=== PATIENT | female | born 1960 | race Caucasian/White ===

== ENCOUNTER → 2017-02-14 11:04 | Outpatient (CLI) | payer MEDICARE ==
[2014-06-16 09:13] VITALS: BMI 35.0
[~2017-02-14 11:04] MED LIST: BAYER CHEWABLE81 MG PO; BUMEX2 MG PO; CARDIZEM120 MG PO; CRESTOR40 MG PO; PROAIR HFA8.5 GM INH
== END | disposition home or self-care (01) ==
LOC: D.US 02-13 10:00
DX: M79.605 Pain in left leg (principal); M79.604 Pain in right leg

== ENCOUNTER 2017-03-03 07:26 | Outpatient (CLI) | payer MEDICARE ==
--- NOTE | ~2017-03-03 | HEMODYNAMI ---
PATIENT:LILIANA ESPINAL MEDICAL RECORD: [id number] : 62 LOCATION:[facility] ADMISSION DATE: 03/03/17 Generatedon:03/03/20179:55 Patient name: LILIANA ESPINAL Patient #: [id number] SSN: DO B: 1960 Date of study: 03/03/2017 Page: Of Hemodynamic Procedure Report Patient Data Patient Demographics Procedure consent was obtained First Name: LILIANA Gender: Female Last Name: KYLIE : 1960 Middle Initial: KEATON Age: 56 year(s) Patient #: [id number] Race: Unknown Additional ID: [id number] Contact details Address: [place] [address] State: [place] City: [place] Zip code: [address] Past Medical History Allergies Allergen Reaction Date Comments Reported Eggs 06/16/2014 Other allergy 06/16/2014 Flu vaccine Penicillins 06/16/2014 Penicillins 03/03/2017 Admission Admission Data Admission Date: 03/03/2017 Admission Time: 7:26 Lab Results Lab Result Date: 03/03/2017 Lab Result Time: 0:00 Biochemistry Name Units Result Min Max Creatinine mg/dl 0.9 --(-*--)-- 0.6 1.3 CBC Name Units Result Min Max Hemoglobin g/dl 15.1 --(-*--)-- 13.5 17.5 Procedure Procedure Types Cath Procedure Diagnostic Procedure C [facility] w/Coronaries FFR/IVUS Intra-Coronary IVUS Initial PCI Procedure Coronary Stent Initial Miscellaneous Procedures Moderate Sedation up to 30 minutes Procedure Description Procedure Date Procedure Date: 03/03/2017 Procedure Start Time: 9:38 Procedure End Time: 9:54 Procedure Staff Name Function Kong Barba MD Performing Physician Itz Mccabe RN Nurse Rajan Banuelos RT Scrub Ondina Munira RT Monitor Procedure Data Cath Procedure Fluoroscopy Diagnostic fluoroscopy Total fluoroscopy Time: 4.6 time: 4.6 min min Diagnostic fluoroscopy Total fluoroscopy dose: 782 dose: 782 mGy mGy Contrast Material Contrast Material Type Amount (ml) Isovue 300 87 Entry Location Entry Primary Successful Side Size Upsize Upsize Entry Closure Silva ccessful Closure Location (Fr) 1 (Fr) 2 (Fr) Remarks Device Remarks Radial Right 6 Fr Mechanical artery Short Compression Estimated blood loss: 10 ml Diagnostic catheters Device Type Used For End Catheter Placement Diagnostic Terumo 5Fr LV Angiography Brea 110cm catheter Diagnostic Terumo 5Fr Left Coronary Brea 110cm catheter Angiography Diagnostic Terumo 5Fr Right Coronary Brea 110cm catheter Angiography Procedure Complications No complications Procedure Medications Medication Administration Route Dosage Oxygen NC 2 l/min Heparin Flush Bag added to field 2 bags (1000units/500ml NS) 0.9% NaCl I.V. 100 ml/hr Radial Cocktail added to field 1 syringe (Verapomil 2mg/Nitro 400mcg/Heparin 1500units) Fentanyl I.V. 50 mcg Versed I.V. 1 mg Fentanyl I.V. 50 mcg Versed I.V. 1 mg Radial Cocktail I.A. 1 syringe (Verapomil 2mg/Nitro 400mcg/Heparin 1500units) Heparin Bolus I.V. 4000 units Hemodynamics Rest HGB: 15.1 (g/dl) Heart Rate: 65 (bpm) Snapshots Pre Cath Intra NCS Post Cath Vital Signs Time Heart Resp SPO2 NIBP (mmHg) Rhythm Pain Sedation Rate (ipm) (%) Status Level (bpm) 9:01:02 65 19 98 144/85(121) NSR 0 (11) 10(A) , No pain 9:05:18 66 15 98 137/83(114) NSR 0 (11) 10(A) , No pain 9:09:34 66 15 99 142/76(110) NSR 0 (11) 10(A) , No pain 9:13:46 68 17 98 129/77(110) NSR 0 (11) 10(A) , No pain 9:17:58 67 16 99 124/78(100) NSR 0 (11) 10(A) , No pain 9:22:08 68 17 99 120/76(101) NSR 0 (11) 10(A) , No pain 9:26:16 70 18 98 120/79(96) NSR 0 (11) 9(A) , No pain 9:30:28 71 17 98 123/70(105) NSR 0 (11) 9(A) , No pain 9:34:38 71 17 97 121/78(92) NSR 0 (11) 9(A) , No pain 9:38:45 71 17 97 132/79(115) NSR 0 (11) 9(A) , No pain 9:42:53 82 17 94 120/72(98) NSR 0 (11) 9(A) , No pain 9:47:05 77 17 96 113/70(97) NSR 0 (11) 9(A) , No pain 9:51:13 74 18 97 122/73(98) NSR 0 (11) 9(A) , No pain 9:53:36 75 17 98 119/71(106) NSR 0 (11) 9(A) , No pain Medications Time Medication Route Dose Verified Delivered Reason Notes Effectiveness by by 9:00:17 Oxygen NC 2 l/min Kong Mobley Per physician Jameson Mccabe RN 9:00:27 Heparin Flush added 2 bags Kong Mobley used for Bag to Jameson Mccabe RN procedure (1000units/500ml field NS) 9:00:36 0.9% NaCl I.V. 100 Kong Mobley Per physician ml/hr Jameson Mccabe RN 9:00:45 Radial Cocktail added 1 Kong Mobley used for (Verapomil to syringe Jameson Mccabe RN procedure 2mg/Nitro field 400mcg/Heparin 1500units) 9:24:12 Fentanyl I.V. 50 mcg Kong Mobley for sedation Jameson Mccabe RN 9:24:18 Versed I.V. 1 mg Kong Mobley for sedation Jameson Mccabe RN 9:37:09 Fentanyl I.V. 50 mcg Kong Mobley for sedation Jameson Mccabe RN 9:37:14 Versed I.V. 1 mg Kong Mobley for sedation Jameson Mccabe RN 9:39:49 Radial Cocktail I.A. 1 Kong Triana for (Verapomil syringe Jameson Barba MD vasodilation 2mg/Nitro 400mcg/Heparin 1500units) 9:43:55 Heparin Bolus I.V. 4000 Kong Mobley for units Jameson Mccabe RN anticoagulation Procedure Log Time Note 8:36:32 Itz Mccabe RN sent for patient. Start room use. 8:37:31 Time tracking: Regular hours 8:37:36 Plan of Care:Hemodynamics will remain stable., Cardiac rhythm will remain stable., Comfort level will be maintained., Respiratory function will remain adequate., Patient/ family verbilizes understanding of procedure., Procedure tolerated without complication., Recovers from procedure without complications.. 8:51:01 Patient received from Pre/Post Procedure Room to CCL 2 Alert and oriented. Tansferred to table in Supine position. 8:51:03 Warm blankets applied, and carmen hugger turned on for patient comfort. 8:51:03 Correct patient and procedure confirmed by team. 8:51:05 Signed procedure consent form obtained from patient. 8:51:05 ECG and BP/O2 sat monitors applied to patient. 8:51:06 Full Disclosure recording started 8:59:54 Vital chart was started 9:00:17 Oxygen 2 l/min NC was administered by Itz Mccabe RN; Per physician; 9:00:27 Heparin Flush Bag (1000units/500ml NS) 2 bags added to field was administered by Itz Mccabe RN; used for procedure; 9:00:36 0.9% NaCl 100 ml/hr I.V. was administered by Itz Mccabe RN; Per physician; 9:00:45 Radial Cocktail (Verapomil 2mg/Nitro 400mcg/Heparin 1500units) 1 syringe added to field was administered by Itz Mccabe RN; used for procedure; 9:01:13 Baseline sample Acquired. 9:01:16 Rhythm: sinus rhythm 9:01:38 H&P Date Dictated: 02/07/2017 Within 30 days and on chart., H&P Addendum completed by physician on day of procedure. (MUST COMPLETE FOR ALL OUTPATIENTS). 9:01:39 Pre-procedure instructions explained to patient. 9:01:40 Pre-op teaching completed and patient verbalized understanding. 9:01:41 Family in patients room. 9:01:43 Patient NPO since Midnight. 9:01:52 Patient allergic to Penicillins 9:01:55 Is the patient allergic to Iodine/contrast media? No. 9:02:05 Is patient on blood thinner?Yes 9:02:12 ACC The patient was administered the following blood thiners within the last 24 hours: ACCAspirin, ACCPlavix 9:02:15 Patient diabetic? No. 9:02:17 Previous problem with sedation/anesthesia? No ? 9:02:18 Snore? Yes 9:02:19 Sleep apnea? Yes 9:02:20 Deviated septum? No 9:02:20 Opens mouth fully? Yes 9:02:21 Sticks out tongue? Yes 9:02:22 Airway obstruction? No ? 9:02:25 Dentures? Yes In 9:02:29 Pre procedure: right dorsailis pedis pulse 2+ Normal; easily identifiable; not easily obliterated 9:02:30 Modified Titi's test Ulnar < 7 seconds 9:02:32 Patient pain scale 0/10 ?. 9:02:38 IV patent on arrival in left hand with 0.9% NaCl at [facility]. 9:02:42 Lab results completed and on chart. 9:02:46 Right Radial & Right Groin area was prepped with chlora-prep and draped in sterile fashion 9:02:47 Alarms reviewed by R. N. 9:02:51 Sharps counted by scrub and verified by R.N. 9:03:36 Lab Result : Creatinine 0.9 mg/dl 9:03:36 Lab Result : Hemoglobin 15.1 g/dl 9:03:55 Use device set Radial Dx 9:03:56 Acist Syringe opened to sterile field. 9:03:56 Medline Cath Pack opened to sterile field. 9:03:57 Bag Decanter opened to sterile field. 9:03:57 Terumo 6Fr Slender Glidesheath opened to sterile field. 9:03:57 [facility] Michael 260cm J .035 wire opened to sterile field. 9:03:58 Acist Hand Control opened to sterile field. 9:03:58 Acist Manifold opened to sterile field. 9:03:58 Tegaderm 4 x 4 opened to sterile field. 9:03:59 MBrace Wrist Support opened to sterile field. 9:09:01 Patient not . Patient has had hysterectomy. 9:14:32 Zero performed for pressure channel P1 9:23:41 Final Timeout: patient, procedure, and site verified with staff and physician. All members of the team are in agreement. 9:23:49 Right Radial site verified by team. 9:23:52 Physical assessment completed. ASA score P 2 - A patient with mild systemic disease as per Kong Barba MD. 9:23:55 Sedation plan: IV Moderate Sedation Versed, Fentanyl 9:24:12 Fentanyl 50 mcg I.V. was administered by Itz Mccabe RN; for sedation; 9:24:18 Versed 1 mg I.V. was administered by Itz Mccabe RN; for sedation; 9:37:09 Fentanyl 50 mcg I.V. was administered by Itz Mccabe RN; for sedation; 9:37:14 Versed 1 mg I.V. was administered by Itz Mccabe RN; for sedation; 9:37:46 Procedure started. 9:38:25 Local anesthetic to right radial artery with Lidocaine 2% by Kong Barba MD.INITIAL ACCESS ONLY 9:38:40 A 6 Fr Short sheath was inserted into the Right Radial artery 9:39:11 A Diagnostic Terumo 5Fr Brea 110cm catheter was advanced over the wire and used for LV Angiography. 9:39:14 LV gram done using TRIPLETT 9:39:18 Injector settings: Ml/sec: 5, Volume: 15, 9:39:26 EF : 60 % 9:39:49 Radial Cocktail (Verapomil 2mg/Nitro 400mcg/Heparin 1500units) 1 syringe I.A. was administered by Kong Barba MD; for vasodilation; 9:40:56 A Diagnostic Terumo 5Fr Brea 110cm catheter was advanced over the wire and used for Left Coronary Angiography. 9:42:32 A Diagnostic Terumo 5Fr Brea 110cm catheter was advanced over the wire and used for Right Coronary Angiography. 9:43:01 Ludwig Whisper J 300cm 0.014 guide wire opened to sterile field. 9:43:02 Nash [place] Eagleye IVUS Catheter opened to sterile field. 9:43:02 Medtronic Launcher 6Fr AR 2.0 guide catheter opened to sterile field. 9:43:11 6 Fr AR 2.0 guide catheter was inserted over the wire 9:43:21 [employer] BasixCompak Inflation Kit opened to sterile field. 9:43:55 Heparin Bolus 4000 units I.V. was administered by Itz Mccabe RN; for anticoagulation; 9:45:29 Guide Catheter removed. unable to cannulate vessel. 9:45:37 GUIDE Terumo 6Fr Brea 4.0 guide catheter opened to sterile field. 9:45:50 6 Fr Brea 4.0 guide catheter was inserted over the wire 9:46:18 Whisper wire advanced. 9:47:11 IVUS catheter advanced over wire. 9:47:23 IVUS pass to RCA lesion performed. 9:48:43 IVUS catheter removed over wire. 9:50:56 Inflation Number: 1 A Rick RX 3.0 x 38 stent was prepped and advanced across the Mid RCA. The stent was deployed at 13 LYLA for 0:07 (min:sec). 9:51:07 Stent catheter was removed intact over wire. 9:51:08 Wire removed. 9:51:08 Guide catheter removed. 9:51:17 Sheath removed intact; hemostasis achieved with Mechanical Compression to the Right Radial artery. 9:51:20 Procedure ended.(Physican Out) 9:51:38 Fluoroscopy time 04.60 minutes. 9:51:44 Fluoroscopy dose: 782 mGy 9:51:44 Flurop Dose total: 782 9:51:46 Contrast amount:Isovue 300 87ml. 9:51:48 Sharps counted by scrub and verified by R.N. 9:51:50 TR band inflated with 12cc of air. 9:51:51 Insertion/operative site no bleeding no hematoma. 9:52:03 Post right radial artery:stable, clean and dry 9:52:04 Post Procedure Pulses reassessed and unchanged 9:52:07 Post-procedure physical assessment completed. ASA score P 2 - A patient with mild systemic disease as per Kong Barba MD. 9:52:09 Post procedure rhythm: unchanged. 9:52:13 Estimated blood loss: 10 ml 9:52:14 Post procedure instruction explained to patient.Patient verbalizes understanding. 9:52:15 Patient needs reinforcement of post procedure teaching. 9:52:31 Procedure type changed to Cath procedure, Diagnostic procedure, LHC, LHC w/Coronaries, FFR/IVUS, Intra-Coronary IVUS Initial, PCI procedure, Coronary Stent Initial, Miscellaneous Procedures, Moderate Sedation up to 30 minutes 9:52:36 Procedure Complication : No complications 9:52:43 Terumo TR Band Standard opened to sterile field. 9:53:51 See physician's report for complete and final results. 9:53:53 Procedure and supply charges have been captured, reviewed, submitted and are correct. 9:54:34 Vital chart was stopped 9:54:36 Report given to Pre/Post Procedure Room. 9:54:40 Patient transfered to Pre/Post Procedure Room with Stretcher. 9:54:47 Procedure ended. 9:54:47 Full Disclosure recording stopped 9:54:51 End room use (Document Last) Intervention Summary Intervention Notes Time ActionType Lesion and Equipment Action# Pressure Duration Attributes Used 9:50:56 Place stent Mid RCA [place] RX 1 13 00:07 3.0 x 38 stent Device Usage Item Name Manufacture Quantity Catalog Hospital Part Current Minim al Lot# / Number Charge Number Stock Stock Serial# Code Acist Acist 1 61346 558580 345806 996471 20 Syringe Medical [employer] Inc Medline Cardinal 1 [id number] 132210 59927 195084 5 Cath Pack Health Bag Microtek 1 2002S 280549 87893 375408 5 EverTrue Inc. Terumo 6Fr Terumo 1 [id number] 750553 688814 280262 [address] [facility] 1 729383 278008 310209 902405 30 260cm J .035 wire Acist Hand Acist 1 70602 837276 582327 910260 5 Ouner [employer] Inc Acist Acist 1 58662 182390 984855 596985 5 Manifold Medical Systems Inc Tegaderm 4 3M 1 1626W 470040 693044 311295 5 x 4 MBrace Advanced 1 140-0250-00 169474 36530 611931 5 Wrist Vascular Support Dynamics Diagnostic Terumo 1 29-3558 273389 868792 814479 5 Terumo 5Fr Brea 110cm catheter Ludwig Ludwig 1 [id number] 265971 583843 037718 5 Whisper J Vascular 300cm 0.014 guide wire Nash Nash 1 [id number] 530884 970335 801774 8 [place] Eagley[place] IVUS Catheter Medtronic Medtronic 1 [id number] 393717 09535 488829 1 Launcher 6Fr AR 2.0 guide catheter Merit Merit 1 [id number] 000824 395983 444118 15 Expa Medical Inflation Kit GUIDE Terumo 1 53-3449 904409 591168 320987 1 Terumo 6Fr Brea 4.0 guide catheter [place] RX 3.0 Medtronic 1 [id number] 754202 4112741 396409 5 [id number] x 38 stent Terumo TR Terumo 1 [id number] 102863 350342 437755 40 Band Standard Signature Audit Warba Stage Time Signature Unsigned Intra-Procedure 03/03/2017 Ondina 9:55:01 AM Counts RT(R) Signatures Monitor : Ondina Signature : Counts RT Date : Time : [address] [place] [address]
[2017-03-03] MEDS ORDERED: PLAVIX75 MG PO (07:42)
[2017-03-03] MEDS ORDERED: HYDROCODONE-APA1 TAB PO (07:42)
[2017-03-03 07:50] VITALS: BP 146/77; BMI 33.3
[2017-03-03 08:13] LABS: BASOPHILS 0.2 % (0-2); EOSINOPHILS 0.9 % (0-7); HEMATOCRIT 43.4 % (36.0-48.0); HEMOGLOBIN 15.1 g/dL (12-16); IMMATURE GRANULOCYTES 0.1 % (0-5); MCHC 34.8 g/dL (31.0-37.0); MCV 86.1 fL (80.0-100.0); MEAN PLATELET VOLUME 11.6 fL (7.4-10.4); MONOCYTES 8.4 % (2-11); NEUTROPHILS 54.4 % (40-80); PLATELET COUNT 189 10x3/uL (130-400); RBC 5.04 10x6/uL (4.00-5.40); RDW 12.6 % (11.5-14.5); WBC 8.1 10x3/uL (4.8-10.8)
[2017-03-03 08:22] LABS: ANION GAP 12.6 mmol/L (8-16); CALCIUM 9.5 mg/dL (8.5-10.1); CARBON DIOXIDE 28.9 mmol/L (21.0-32.0); CREATININE - SERUM 0.9 mg/dL (0.6-1.3); POTASSIUM - SERUM 3.5 mmol/L (3.5-5.1)
--- NOTE | 2017-03-03 10:55 | NUR ---
1025 HOB ELEVATED, ROOM AIR W NO DISTRESS. AWAKE AND TALKING WITH AT BEDSIDE. NSR RATE 77 WNO C/O CHEST PAIN. PULSES PALP X 4. R WRIST TR BAND C/D/I W NO HEMATOMA OR BLEEDING.
--- NOTE | 2017-03-03 11:00 | NUR ---
SITTING UP IN BED EATING TURKEY SANDWICH W NO C/O NAUSEA. R WRIST REMAINS C/D/I W NO HEMATOMA OR BLEEDING.
--- NOTE | 2017-03-03 11:30 | NUR ---
1130 VSS WITH CHEST PAIN DENIED TR BAND TO R/WRIST CDI NO BLEEDING NO HEMATOMA NOTED. FAMILY AT SIDE
--- NOTE | 2017-03-03 12:00 | NUR ---
1200 NO COMPLAINTS NO DISTRESS VSS WITH TR BAND TO R/WRIST CDI NO CHANGE FROM PREVIOUS ASSESSMENT
--- NOTE | 2017-03-03 12:29 | NUR ---
RESTING QUIETLY WITH EYES CLOSED NO DISTRESS NOTED
--- NOTE | 2017-03-03 13:09 | OP ---
PATIENT NAME: LILIANA ESPINAL MEDICAL RECORD: [id number] :62 LOCATION:D.CAT ADMISSION DATE: SURGEON: CORNELIUS ZULUAGA MD DATE OF OPERATION: 03/03/2017 DATE OF SERVICE: 03/03/2017 PROCEDURES: 1. PTCA stent RCA. 2. Intravascular ultrasound. 3. Left heart catheterization. 4. Selective coronary angiography. 5. Left ventriculogram. INDICATION: Angina and coronary artery disease. PROCEDURE IN DETAIL: After informed consent was obtained and after a detailed explanation of the risks, benefits as well as alternative therapies, the patient elected to proceed with angiogram and angioplasty. The right radial area was prepped and draped in normal sterile fashion. The right radial artery was cannulated via modified Seldinger technique with placement of 6-Kyrgyz sheath. All catheters exchanged through this sheath. FINDINGS: The left ventriculogram was performed in standard 30-degree TRIPLETT view, reveals good cardiac wall motion throughout all segments. Overall ejection fraction estimated at 60%. SELECTIVE CORONARY ANGIOGRAPHY: 1. Left main showed no significant angiographic disease. 2. Left anterior descending has moderate irregularities, but no flow-limiting stenosis. 3. The left circumflex shows moderate irregularities, but no flow-limiting stenosis. 4. Right coronary has a long area of greater than 70% stenosis confirmed by intravascular ultrasound. PTCA STENT OF THE RIGHT CORONARY: Stent used is a 3.0 x 38 mm Resolute. Result was 0% residual stenosis. OVERALL IMPRESSION: Successful percutaneous transluminal coronary angioplasty stent of the right coronary artery going from 80% initial stenosis to 0% residual. TRANSINT:[id number] Voice Confirmation ID: [id number] DOCUMENT ID: [id number] CORNELIUS ZULUAGA MD at 1309 CC: [id number] DICTATION DATE: 03/03/17 0955 ASSISTANT COACH: 03/03/17 [address] [place] [address]
--- NOTE | 2017-03-03 13:25 | NUR ---
2CC AIR REMOVED FROM R WRIST TR BAND. WILL MONITOR FOR BLEEDING.
--- NOTE | 2017-03-03 13:47 | NUR ---
PIV REMOVED FROM LEFT WRIST WITH BANDAID APPLIED. UP TO BEDSIDE TO DRESS.
--- NOTE | 2017-03-03 14:10 | NUR ---
TR BAND WEANED, TEGADERM AND 2X2 APPLIED TO WRIST. BRACE RE-APPLIED. D/C INSTRUCTIONS DISCUSSED WITH PATIENT AND AT SIDE. WHEELED OUT VIA WHEELCHAIR.
== END 2017-03-03 14:11 | disposition home or self-care (01) ==
LOC: D.CATH 07:26
PROVIDERS: Internal Medicine Interventional Cardiology
DX: I25.119 Atherosclerotic heart disease of native coronary artery with unspecified angina pectoris (principal); R94.30 Abnormal result of cardiovascular function study, unspecified; I70.219 Atherosclerosis of native arteries of extremities with intermittent claudication, unspecified extremity; R06.09 Other forms of dyspnea; Z01.812 Encounter for preprocedural laboratory examination
CPT/HCPCS: 93458; 92978; C9600

== ENCOUNTER → 2017-06-09 09:07 | Outpatient (CLI) | payer MEDICARE ==
[~2017-06-09 09:07] MED LIST changes: +HYDROCODONE-APA1 TAB PO; +PLAVIX75 MG PO
== END | disposition home or self-care (01) ==
LOC: D.MRI 09:00
DX: M62.81 Muscle weakness (generalized) (principal)

== ENCOUNTER → 2017-12-15 16:11 | Outpatient (CLI) | payer MEDICARE | END | disposition home or self-care (01) | LOC: D.MRI 16:11 | DX: M54.31 Sciatica, right side (principal) ==

== ENCOUNTER 2018-03-12 18:12 | Emergency (ER) | payer MEDICARE ==
[~2018-03-12] VITALS: Ht 165.1 cm; Wt 90.9 kg
[2018-03-12 18:26] VITALS: Ht 165.1 cm; Wt 90.9 kg
[2018-03-12] MEDS ORDERED: HYDROXYZINE HCL50 MG PO (19:06)
[2018-03-12] MEDS ORDERED: MEDROL DOSE PACK4 MG PO (19:06)
[2018-03-12 19:48] VITALS: BP 132/84
== END 2018-03-12 19:48 | disposition home or self-care (01) ==
LOC: D.ER 18:12
DX: T65.891A Toxic effect of other specified substances, accidental (unintentional), initial encounter (principal); L24.1 Irritant contact dermatitis due to oils and greases; Y92.89 Other specified places as the place of occurrence of the external cause; I10 Essential (primary) hypertension; Z85.038 Personal history of other malignant neoplasm of large intestine; Z85.048 Personal history of other malignant neoplasm of rectum, rectosigmoid junction, and anus

== ENCOUNTER → 2018-06-06 08:55 | Outpatient (CLI) | payer MEDICARE ==
[2018-03-12 18:26] VITALS: BMI 33.3
[~2018-06-06 08:55] MED LIST changes: +HYDROXYZINE HCL50 MG PO; +MEDROL DOSE PACK4 MG PO
== END | disposition home or self-care (01) ==
LOC: D.MRI 08:55
DX: G35 Multiple sclerosis (principal)

== ENCOUNTER 2018-06-25 15:59 | Observation (INO) | payer MEDICARE ==
[~2018-06-25] VITALS: Ht 165.1 cm; Wt 90.9 kg
--- NOTE | ~2018-06-25 | HEMODYNAMI ---
PATIENT:LILIANA ESPINAL MEDICAL RECORD: [id number] : 62 [facility] GabbyE13- [facility]# [id number] ADMISSION DATE: 06/25/18 Generatedon:06/26/201815:31 Patient name: LILIANA ESPINAL Patient #: [id number] SSN: DO B: 1960 Date of study: 06/26/2018 Page: Of Hemodynamic Procedure Report Patient Data Patient Demographics Procedure consent was obtained First Name: LILIANA Gender: Female Last Name: KYLIE : 1960 [facility] Initial: KEATON Age: 57 year(s) Patient #: [id number] Race: Unknown Additional ID: [id number] Contact details Address: [place] [address] State: [place] City: [place] Zip code: [address] Past Medical History Allergies Allergen Reaction Date Comments Reported Eggs 06/16/2014 Other allergy 06/16/2014 Flu vaccine Penicillins 06/16/2014 Penicillins 03/03/2017 Admission Admission Data Admission Date: 06/25/2018 Admission Time: 18:22 Room #: D.E13 Procedure Procedure Types Cath Procedure Diagnostic Procedure [facility] w/Coronaries Sedation Charges Moderate Sedation up to 15 minutes PCI Procedure Coronary Stent Coronary Stent Initial Procedure Description Procedure Date Procedure Date: 06/26/2018 Procedure Start Time: 15:11 Procedure End Time: 15:27 Procedure Staff Name Function Brendon Omalley MD Performing Physician Katrin Dahl RT Monitor Myrtle Coleman RT Scrub Romeo Oliver RN Nurse Procedure Data Cath Procedure Fluoroscopy Diagnostic fluoroscopy Total fluoroscopy Time: 5.5 time: 5.5 min min Diagnostic fluoroscopy Total fluoroscopy dose: 870 dose: 870 mGy mGy Contrast Material Contrast Material Type Amount (ml) Isovue 300 100 Entry Location Entry Primary Successful Side Size Upsize Upsize Entry Closure Silva ccessful Closure Location (Fr) 1 (Fr) 2 (Fr) Remarks Device Remarks Radial Right 6 Fr Mechanical artery Short Compression Estimated blood loss: 10 ml Diagnostic catheters Device Type Used For End Catheter Placement DIAGNOSTIC Eola 110cm 5 Procedure Fr catheter ([id number]) Procedure Complications No complications Procedure Medications Medication Administration Route Dosage 0.9% NaCl I.V. 100 ml/hr Oxygen etCO2 Nasal cannula 2 l/min Heparin Flush Bag added to field 2 bags (1000units/500ml NS) Lidocaine 2% added to field 20 Radial Cocktail added to field 1 syringe (Verapomil 2mg/Nitro 400mcg/Heparin 1500units) Benadryl I.V. 50 mg Versed I.V. 1 mg Fentanyl I.V. 50 mcg Radial Cocktail I.A. 1 syringe (Verapomil 2mg/Nitro 400mcg/Heparin 1500units) Heparin Bolus I.V. 5000 units Plavix P.O. 75 mg Hemodynamics Rest Heart Rate: 66 (bpm) Pressure Samples Time Site Value (mmHg) Purpose Heart Use Rate(bpm) 15:12 LV 122/5,5 EDP 83 Gradients Valve Time Site Site Mean SEP/DFP Peak To Heart Use 1 2 (mmHg) (sec/min) Peak Rate (mmHg) (bpm) Aortic 15:13 LV AO 78 Snapshots Pre Cath Intra NCS Post Cath Vital Signs Time Heart Resp SPO2 etCO2 NIBP (mmHg) Rhythm Pain Sedation Rate (ipm) (%) (mmHg) Status Level (bpm) 15:01:58 62 18 96 0 151/81(129) NSR 0 (11) 10(A) , No pain 15:06:17 64 21 99 49 152/80(132) NSR 0 (11) 10(A) , No pain 15:10:35 81 11 93 52.9 144/77(110) NSR 0 (11) 9(A) , No pain 15:14:45 80 15 92 51.3 139/80(104) NSR 0 (11) 9(A) , No pain 15:18:59 75 14 96 49 127/80(98) NSR 0 (11) 10(A) , No pain 15:23:08 72 14 97 49.8 132/74(112) NSR 0 (11) 10(A) , No pain 15:27:21 66 14 99 47.5 129/76(113) NSR 0 (11) 10(A) , No pain Medications Time Medication Route Dose Verified Delivered Reason Not es Effectiveness by by 15:05:49 0.9% NaCl I.V. 100 Romeo Romeo Per physician ml/hr Melody Oliver RN RN 15:05:59 Oxygen etCO2 2 l/min Romeo Romeo Per physician Nasal Melody Oliver cannula RN RN 15:06:08 Heparin Flush added 2 bags Romeo Romeo used for Bag to Melody Oliver procedure (1000units/500ml field RN RN NS) 15:06:18 Lidocaine 2% added 20ml Romeo Romeo for local to vial Lorigan Melody anesthetic field RN RN 15:06:27 Radial Cocktail added 1 Romeo Romeo used for (Verapomil to syringe Lorigan Lorfinn procedure 2mg/Nitro field RN RN 400mcg/Heparin 1500units) 15:06:37 Benadryl I.V. 50 mg Romeo Romeo Per physician Melody Oliver RN RN 15:08:27 Versed I.V. 1 mg Romeo Romeo for sedation Melody Oliver RN RN 15:08:35 Fentanyl I.V. 50 mcg Romeo Romeo for sedation Melody Oliver RN RN 15:12:13 Radial Cocktail I.A. 1 Romeo Brendon for (Verapomil syringe Lorigan Shahram vasodilation 2mg/Nitro RN 400mcg/Heparin 1500units) 15:17:25 Heparin Bolus I.V. 5000 Romeo Romeo for units Melody Oliver anticoagulation RN RN 15:26:33 Plavix P.O. 75 mg Romeo Romeo for Melody Oliver antiplatelet RN RN therapy Procedure Log Time Note 14:40:10 Diagnostic Cath Status : Elective 14:40:32 Romeo Oliver RN sent for patient. Start room use. 14:40:33 Time tracking: Regular hours (M-F 7:00 - 5:00) 14:40:37 Plan of Care:Hemodynamics will remain stable., Cardiac rhythm will remain stable., Comfort level will be maintained., Respiratory function will remain adequate., Patient/ family verbilizes understanding of procedure., Procedure tolerated without complication., Recovers from procedure without complications.. 15:00:45 Patient received from ED to CCL 2 Alert and oriented. Tansferred to table in Supine position. 15:00:46 Warm blankets applied, and carmen hugger turned on for patient comfort. 15:00:46 Correct patient and procedure confirmed by team. 15:00:48 Signed procedure consent form obtained from patient. 15:00:49 ECG and BP/O2 sat monitors applied to patient. 15:00:50 Vital chart was started 15:00:51 Baseline sample Acquired. 15:00:53 Rhythm: sinus rhythm 15:00:55 Full Disclosure recording started 15:00:58 H&P Date Dictated: 06/26/2018 New H&P dictated by physician.. 15:01:00 Pre-procedure instructions explained to patient. 15:01:01 Pre-op teaching completed and patient verbalized understanding. 15:01:02 Family in waiting room. 15:01:03 Patient NPO since Midnight. 15:01:05 Is the patient allergic to Iodine/contrast media? No. 15:01:07 Was the patient premedicated? No 15:01:07 Is patient on blood thinner?Yes 15:01:10 ACC The patient was administered the following blood thiners within the last 24 hours: ACCPlavix 15:01:20 Patient diabetic? No. 15:01:22 Previous problem with sedation/anesthesia? No ? 15:01:24 Snore? Yes 15:01:25 Sleep apnea? Yes 15:01:26 Deviated septum? No 15:01:26 Opens mouth fully? Yes 15:01:27 Sticks out tongue? Yes 15:01:29 Airway obstruction? No ? 15:01:33 Dentures? Yes in tight 15:01:36 Pre procedure: right dorsailis pedis pulse 2+ Normal; easily identifiable; not easily obliterated 15:01:38 Pre procedure: left dorsailis pedis pulse 2+ Normal; easily identifiable; not easily obliterated 15:01:40 Patient pain scale 0/10 ?. 15:01:44 IV patent on arrival in left antecubital with 0.9% NaCl at [facility]. 15:01:46 Lab results completed and on chart. 15:01:50 Right Radial & Right Groin area was prepped with chlora-prep and draped in sterile fashion 15:01:50 Alarms reviewed by R. N. 15:01:51 Sharps counted by scrub and verified by R.N. 15:02:28 Physician arrived 15::29 --------ALL STOP TIME OUT------ 15:02:29 Final Timeout: patient, procedure, and site verified with staff and physician. All members of the team are in agreement. 15:02:32 Right Radial & Right Groin site verified by team. 15:02:37 Physical assessment completed. ASA score P 2 - A patient with mild systemic disease as per Romeo Oliver RN. 15:02:41 Sedation plan: IV Moderate Sedation Medication:Versed, Fentanyl 15:02:45 Use device set Radial Dx or PCI 15:02:46 ACIST Syringe (77508) opened to sterile field. 15:02:47 SHEATH 6FR RAIN (0837688) NO COST SUPPLY opened to sterile field. 15:02:47 Medline Cath Pack ([id number]) opened to sterile field. 15:02:48 Bag Decanter (2002S) opened to sterile field. 15:02:48 DIAGNOSTIC WIRE .035 260cm J wire (549457) opened to sterile field. 15:02:52 ACIST Hand Control (33479) opened to sterile field. 15:02:52 ACIST Manifold (69587) opened to sterile field. 15:02:54 MBrace Wrist Support ([id number]) opened to sterile field. 15:02:55 NEEDLE Cook 21G 4cm Radial (Q74742) opened to sterile field. 15:05:49 0.9% NaCl 100 ml/hr I.V. was administered by Romeo Oliver RN; Per physician; 15:05:59 Oxygen 2 l/min etCO2 Nasal cannula was administered by Romeo Oliver RN; Per physician; 15:06:08 Heparin Flush Bag (1000units/500ml NS) 2 bags added to field was administered by Romeo Oliver RN; used for procedure; 15:06:18 Lidocaine 2% 20ml vial added to field was administered by Romeo Oliver RN; for local anesthetic; 15:06:27 Radial Cocktail (Verapomil 2mg/Nitro 400mcg/Heparin 1500units) 1 syringe added to field was administered by Romeo Oliver RN; used for procedure; 15:06:37 Benadryl 50 mg I.V. was administered by Romeo Oliver RN; Per physician; 15:08:27 Versed 1 mg I.V. was administered by Romeo Oliver RN; for sedation; 15:08:35 Fentanyl 50 mcg I.V. was administered by Romeo Oliver RN; for sedation; 15:11:41 Procedure started. 15:11:43 Zero performed for pressure channel P1 15:11:50 Local anesthetic to right radial artery with Lidocaine 2% by Brendon Omalley MD.INITIAL ACCESS ONLY 15:11:58 A 6 Fr Short sheath was inserted into the Right Radial artery 15:12:11 A DIAGNOSTIC Eola 110cm 5 Fr catheter ([id number]) was advanced over the wire and used for Procedure. 15:12:13 Radial Cocktail (Verapomil 2mg/Nitro 400mcg/Heparin 1500units) 1 syringe I.A. was administered by Brendon Omalley MD; for vasodilation; 15:12:14 LV angiography performed. 15:12:16 Zero performed for pressure channel P1 15:13:09 EF : 55 % 15:13:14 LCA angiography performed. 15:13:46 RCA angiography performed. 15:14:17 Catheter removed. 15:15:52 Proceeding to intervention. 15:16:03 GUIDE 6FR HS I catheter (LA6HSI) opened to sterile field. 15:16:07 INFLATOR Merit BasixCompak (MV1945) opened to sterile field. 15:16:07 WHISPER 300cm guide wire ([id number]) opened to sterile field. 15:17:02 6 Fr HS1 guide catheter was inserted over the wire 15:17:25 Heparin Bolus 5000 units I.V. was administered by Romeo Oliver RN; for anticoagulation; 15:19:01 GUIDE 6FR AR 1.0 catheter ([id number]) opened to sterile field. 15:19:09 6 Fr AR1 guide catheter was inserted over the wire 15:19:20 Whisiper wire advanced. 15:22:00 Wire advanced across lesion. 15:23:18 Place stent Inflation Number: 1 A ARNULFO OTW 3.0 x 12 stent ([id number]) was prepped and advanced across the Dist RCA. The stent was deployed at 14 LYLA for 0:15 (min:sec). 15:24:41 Wire removed. 15:24:42 Guide catheter removed. 15:24:56 Sheath removed intact; hemostasis achieved with Mechanical Compression to the Right Radial artery. 15:25:00 Procedure ended.(Physican Out) 15:25:10 Fluoroscopy time 05.50 minutes. 15:25:16 Flurop Dose total: 870 15:25:16 Fluoroscopy dose: 870 mGy 15:25:32 TR BAND Standard ([id number]) opened to sterile field. 15:25:40 Contrast amount:Isovue 300 100ml. 15:25:42 Sharps counted by scrub and verified by R.N. 15:25:45 TR band inflated with 10cc of air. 15:25:47 Insertion/operative site no bleeding no hematoma. 15:25:49 Post Procedure Pulses reassessed and unchanged 15:26:04 Post-procedure physical assessment completed. ASA score P 2 - A patient with mild systemic disease as per Brendon Omalley MD. 15:26:08 Post procedure rhythm: sinus rhythm 15::12 Estimated blood loss: 10 ml 15::13 Post procedure instruction explained to patient.Patient verbalizes understanding. 15:26:33 Plavix 75 mg P.O. was administered by Romeo Oliver RN; for antiplatelet therapy; 15::36 Procedure type changed to Cath procedure, Diagnostic procedure, LHC, LHC w/Coronaries, Sedation Charges, Moderate Sedation up to 15 minutes, PCI procedure, Coronary Stent, Coronary Stent Initial 15::39 Procedure and supply charges have been captured, reviewed, submitted and are correct. 15:27:02 Procedure Complication : No complications 15::06 See physician's report for complete and final results. 15:27:17 Patient transfered to Pre/Post Procedure Room with Stretcher. 15:27:19 Procedure ended. 15:27:19 Full Disclosure recording stopped 15::23 End room use (Document Last) 15::23 End room use (Document Last) 15:27:32 ACC-PCI Only Patient was given prescriptions, or instructed by Brendon Omalley MD to start/continue the following medications upon discharge: Plavix 15::27 Vital chart was stopped Intervention Summary Intervention Notes Time ActionType Lesion and Equipment Action# Pressure Duration Attributes Used 15:23:18 Place stent Dist RCA ARNULFO OTW 3.0 1 14 00:15 x 12 stent ([id number]) Device Usage Item Name Manufacture Quantity Catalog Hospital Part Current Mini mal Lot# / Number Charge Number Stock Stock Serial# Code ACIST Syringe Acist 1 10067 513392 835208 710619 20 (16732) Medical Systems Inc SHEATH 6FR [place] 1 [id number] 621784 044720 5 [facility] (5814257) NO COST SUPPLY Medline Cath Medline 1 [id number] 763883 40562 328153 5 Pack ([id number]) Bag Decanter Microtek 1 2001S 056850 20577 064283 5 () Medical Inc. DIAGNOSTIC [facility] [place] 1 872125 669582 902868 214906 30 WIRE .035 260cm J wire (174473) ACIST Hand Acist 1 72417 712153 944252 101938 5 Control Medical (03238) Systems Inc ACIST Acist 1 60857 215431 301650 368889 5 Manifold Medical (42438) Systems Inc MBrace Wrist Advanced 1 140-0250-00 731525 66030 727934 5 Support Vascular ([id number]) Dynamics NEEDLE Appiphany Medical 1 O48636 779378 375517 910416 5 21G 4cm Radial (D70470) DIAGNOSTIC Terumo 1 40-5583 398255 847809 539225 5 Eola 110cm 5 Fr catheter (034222) GUIDE 6FR HS Medtronic 1 LA6HSI 212680 49114 171904 1 I catheter (LA6HSI) INFLATOR Merit 1 CK8100 615446 552889 744283 15 [facility] Medical BasixCompak (CX1983) WHISPER 300cm Ludwig 1 [id number] 706058 539471 095957 5 guide wire Vascular ([id number]) GUIDE 6FR AR Medtronic 1 [id number] 746605 56180 677294 1 1.0 catheter (FZ4CN94) ARNULFO OTW 3.0 Medtronic 1 [id number] 850436 3019972 016048 5 [id number] x 12 stent ([id number]) TR BAND Terumo 1 [id number] 226113 768807 616289 40 Standard ([id number]) Signature Audit [place] Stage Time Signature Unsigned Intra-Procedure 06/26/2018 Katrin Dahl 3:31:23 PM RT(R) Signatures Monitor : Katrin Dahl Signature : RT Date : Time : [address] [place] [address]
[2018-06-25 16:09] VITALS: BP 160/90
[2018-06-25 17:03] LABS: BASOPHILS 0.2 % (0-2); EOSINOPHILS 0.9 % (0-7); HEMATOCRIT 38.7 % (36.0-48.0); HEMOGLOBIN 13.5 g/dL (12-16); IMMATURE GRANULOCYTES 0.3 % (0-5); LYMPHOCYTES 29.2 % (15-50); MCH 29.7 pg (26.0-34.0); MCHC 34.9 g/dL (31.0-37.0); MCV 85.2 fL (80.0-100.0); MEAN PLATELET VOLUME 11.5 fL (7.4-10.4); MONOCYTES 6.7 % (2-11); NEUTROPHILS 62.7 % (40-80); PLATELET COUNT 199 10x3/uL (130-400); RBC 4.54 10x6/uL (4.00-5.40); RDW 12.7 % (11.5-14.5); WBC 9.9 10x3/uL (4.8-10.8)
[2018-06-25 17:13] LABS: APTT 27.5 SECONDS (22.8-39.4); INR 1.04 (0.85-1.17); PROTIME 13.1 SECONDS (11.6-15.0)
[2018-06-25 17:18] LABS: ALBUMIN 3.5 g/dL (3.4-5.0); ALKALINE PHOSPHATASE 119 U/L (46-116); ALT (SGPT) 27 U/L (10-68); BILIRUBIN - TOTAL 0.31 mg/dL (0.2-1.3); CALC OSMOLALITY 282 mosm/kg (275-300); CALCIUM 8.8 mg/dL (8.5-10.1); CARBON DIOXIDE 24.7 mmol/L (21.0-32.0); CHLORIDE - SERUM 105 mmol/L (98-107); CREATININE - SERUM 1.1 mg/dL (0.6-1.3); GLUCOSE 120 mg/dL (74-106); POTASSIUM - SERUM 3.3 mmol/L (3.5-5.1); PROTEIN - SERUM 7.3 g/dL (6.4-8.2); SODIUM 141 mmol/L (136-145); UREA NITROGEN 14 mg/dL (7-18); eGFR NON AFRICAN AMERICAN 54 mL/min (90-120)
[2018-06-25 17:29] LABS: CKMB 0.4 U/L (0.0-3.6); CREATINE KINASE 97 UL (21-215); MAGNESIUM - SERUM 2.2 mg/dL (1.8-2.4); TROPONIN-I < 0.017 ng/mL (0.000-0.060)
[2018-06-25 19:00] VITALS: BP 155/85
--- NOTE | 2018-06-25 19:20 | NUR ---
PT RESTING ON BED, FAMILY AT BEDSIDE. PT DENIES NEEDS AT THIS TIME.
[2018-06-25 19:25] LABS: CKMB 0.3 U/L (0.0-3.6); CREATINE KINASE 96 UL (21-215)
[2018-06-25 19:26] LABS: TROPONIN-I < 0.017 ng/mL (0.000-0.060)
[2018-06-25 20:00] VITALS: BP 138/76
--- NOTE | 2018-06-25 20:45 | NUR ---
PT RESTING ON BED, NO S/S OF ACUTE DISTRESS NOTED.
[2018-06-25 21:00] VITALS: BP 132/72
--- NOTE | 2018-06-25 21:50 | NUR ---
PT SLEEPING, LIGHTS LOW FOR COMFORT. NO S/S OF ACUTE DISTRESS NOTED.
[2018-06-25 22:45] VITALS: BP 136/94
--- NOTE | 2018-06-25 22:45 | NUR ---
PT SLEEPING, VS WNL. FAMILY AT BEDSIDE.
--- NOTE | 2018-06-25 23:05 | NUR ---
PT C/O PAIN. FAMILY AT BEDSIDE. RN ADMINISTERED IV MORPHINE AND ZOFRAN PER PRN ORDERS.
[2018-06-26 01:21] LABS: CKMB 0.5 U/L (0.0-3.6); CREATINE KINASE 75 UL (21-215); TROPONIN-I < 0.017 ng/mL (0.000-0.060)
[2018-06-26 07:08] LABS: CKMB 0.1 U/L (0.0-3.6); CREATINE KINASE 64 UL (21-215); TROPONIN-I < 0.017 ng/mL (0.000-0.060)
--- NOTE | 2018-06-26 07:15 | NUR ---
REPORT RECEIVED AND CARE ASSUMED. LYING INBED WITH EYES CLOSED. NO DISTRESS NOTED. WILL CONTINUE TO MONITOR.
[2018-06-26 08:53] VITALS: Ht 165.1 cm; Wt 90.9 kg
[2018-06-26 09:00] LABS: BASOPHILS 0.3 % (0-2); EOSINOPHILS 1.7 % (0-7); HEMATOCRIT 39.5 % (36.0-48.0); HEMOGLOBIN 13.4 g/dL (12-16); IMMATURE GRANULOCYTES 0.1 % (0-5); LYMPHOCYTES 35.4 % (15-50); MCH 29.4 pg (26.0-34.0); MCHC 33.9 g/dL (31.0-37.0); MCV 86.6 fL (80.0-100.0); MEAN PLATELET VOLUME 11.5 fL (7.4-10.4); MONOCYTES 8.4 % (2-11); NEUTROPHILS 54.1 % (40-80); PLATELET COUNT 196 10x3/uL (130-400); RBC 4.56 10x6/uL (4.00-5.40); RDW 12.8 % (11.5-14.5)
[2018-06-26 09:06] LABS: ANION GAP 11.7 mmol/L (8-16); CARBON DIOXIDE 28.4 mmol/L (21.0-32.0); CREATININE - SERUM 0.9 mg/dL (0.6-1.3)
[2018-06-26 09:08] LABS: POTASSIUM - SERUM 4.1 mmol/L (3.5-5.1)
--- NOTE | 2018-06-26 10:41 | NUR ---
COMPLAINING OF CHEST PAIN. GIVEN MORPHINE 4 MG IVP PER SCARLETT HENAO.
--- NOTE | 2018-06-26 11:10 | NUR ---
PATIENT SLEEPING AT THIS TIME.
--- NOTE | 2018-06-26 14:30 | NUR ---
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 CONSENTS SIGNED AND BLOOD CONSENTS SIGNED.
--- NOTE | 2018-06-26 16:00 | NUR ---
RIGHT WRIST TR BAND IN PLACE. NO BLEEDING/HEMATOMA NOTED.
[2018-06-26] MEDS ORDERED: NEURONTIN 300300 MG PO (16:03)
[2018-06-26] MEDS ORDERED: PROZAC40 MG PO (16:04)
[2018-06-26] MEDS ORDERED: BACLOFEN10 MG PO (16:04)
[2018-06-26] MEDS ORDERED: NORVASC10 MG PO (16:05)
[2018-06-26] MEDS ORDERED: ZETIA10 MG PO (16:05)
[2018-06-26] MEDS ORDERED: PLAVIX75 MG PO (16:07)
--- NOTE | 2018-06-26 16:14 | NUR ---
PRESCRIPTION CALLED IN TO [facility]. SPOKE WITH PHARMACIST CANDIS.
--- NOTE | 2018-06-26 16:45 | NUR ---
RIGHT RADIAL TR BAND IN PLACE. NO HEMATOME/BLEEDING NOTED. VSS.
--- NOTE | 2018-06-26 17:15 | NUR ---
PT'S HEAD OF BED INC TO 30 DEGREES. RIGHT RADIAL TR BAND IN PLACE. NO BLEEDING/HEMATOMA NOTED. VSS. PT SET UP WITH SANDWICH TRAY AND DRINK. CALL LIGHT WITHIN REACH.
--- NOTE | 2018-06-26 18:15 | NUR ---
PT RESTING COMFORTABLY. RIGHT RADIAL TR BAND IN PLACE. NO BLEEDING/HEMATOMA NOTED.
--- NOTE | 2018-06-26 18:31 | NUR ---
3cc OF AIR REMOVED FROM TR BAND. NO BLEEDING/HEMATOMA NOTED. VSS. PT ALERT AND ORIENTED.
--- NOTE | 2018-06-26 18:46 | NUR ---
3cc OF AIR REMOVED FROM TR BAND. PT TOLERATED WELL. NO BLEEDING/HEMATOMA NOTED. VSS.
--- NOTE | 2018-06-26 18:57 | NUR ---
LEFT WRIST PIV D/C'D WITH CATH TIP INTACT. PT TOLERATED WELL. CALLED SIGNIFICANT OTHER. HE STATES HE IS 10 MINUTES AWAY AND HAS HER CLOTHING. 2cc OF AIR REMOVED FROM TR BAND. NO BLEEDING/HEMATOMA NOTED.
--- NOTE | 2018-06-26 19:18 | NUR ---
PT'S FAMILY AT BEDSIDE. PT REMOVED FROM MONITORS. ABLE TO DRESS SELF.
--- NOTE | 2018-06-26 19:24 | NUR ---
TR BAND REMOVED THE REMAINDER OF THE WAY. DRESSING APPLIED. NO BLEEDING OR HEMATOMA. WRIST BRACE ON AND PT INSTRUCTED TO TAKE OFF AFTER 2 HOURS. DISCUSSED DISCHARGE INSTRUCTIONS WITH PT AND PT'S FAMILY. THEY VOICED UNDERSTANDING.
--- NOTE | 2018-06-26 19:30 | NUR ---
NO HEMATOMA/BLEEDING TO RIGHT WRIST. PT TAKEN OUT TO VEHICLE BY WHEELCHAIR. NO S/S OF DISTRESS NOTED. ALL BELONGINGS IN HAND.
--- NOTE | 2018-06-30 12:55 | OP ---
PATIENT NAME: LILIANA ESPINAL MEDICAL RECORD: [id number] :62 LOCATION:[facility] ADMISSION DATE:06/25/18 SURGEON: JOHNATHAN MADRIGAL MD DATE OF OPERATION: 06/26/2018 PROCEDURE: Left heart catheterization, selective coronary angiography, right radial approach. CATHETERS: A 5-Slovenian radial sheath and [place] catheter. The procedure was well tolerated. The patient was returned to the boogie. Sheath was removed. TR band was placed. FINDINGS: Left ventriculography in 30-degree TRIPLETT view: Normal wall motion and normal systolic function. CORONARY ANATOMY: LEFT MAIN: Left main is free of disease. LAD: Free of disease in the diagonal system. CIRCUMFLEX: Free of disease in the marginal system. RIGHT CORONARY ARTERY: Distal to the previously placed stent, has 80% discrete stenosis. PLAN: Intervention momentarily. DESCRIPTION: Using indwelling sheath, an AR provided fair guide catheter support followed by 300-cm Whisper wire. Stent deployed was 3.0 x 12 Hedrick drug-eluting stent up to 14 atmospheres. Final angiography shows excellent resolution of 80% stenosis with no significant residual. ROGELIO flow was 3 throughout the procedure. Integrilin was used during the case. Sheath was closed with ExoSeal device. TRANSINT:[id number] Voice Confirmation ID: [id number] DOCUMENT ID: [id number] JOHNATHAN MADRIGAL MD at 1255 CC: [id number] DICTATION DATE: 06/26/18 1530 CHURN TENDER: 06/26/18 1709 DIS IN 06/26/18 [facility] [address] [place] [address]
== END 2018-06-26 19:30 | disposition home or self-care (01) ==
LOC: D.ER 15:59 → D.EDHOLD 18:22 → OBSVTIME 18:23 → D.EDHOLD 06-26 01:19
PROVIDERS: Family Medicine; ADMIT Internal Medicine Interventional Cardiology
DX: I25.110 Atherosclerotic heart disease of native coronary artery with unstable angina pectoris (principal); G35 Multiple sclerosis; I10 Essential (primary) hypertension
CPT/HCPCS: 93458; C9600

== ENCOUNTER 2019-01-23 16:39 | Emergency (ER) | payer MEDICARE ==
[~2019-01-23] VITALS: Ht 165.1 cm; Wt 87.3 kg
[~2019-01-23 16:39] MED LIST changes: +BACLOFEN10 MG PO; +NEURONTIN 300300 MG PO; +NORVASC10 MG PO; +PROZAC40 MG PO; +ZETIA10 MG PO
[2019-01-23 16:43] VITALS: Ht 165.1 cm; Wt 87.3 kg
[2019-01-23] MEDS ORDERED: VIBRAMYCIN 100100 MG PO (17:11)
[2019-01-23 17:52] VITALS: BP 182/86
[2019-01-30 03:06] LABS: RMSF IGM 0.74 index (0.00-0.89)
[2019-01-31 13:10] LABS: EHRLICHIA CHAFF IGG Negative (Neg:<1:64); EHRLICHIA CHAFF IGM Negative (Neg:<1:20); HGE IGG TITER Negative (Neg:<1:64); HGE IGM TITER Negative (Neg:<1:20)
[2019-02-05 09:10] LABS: F. TULARENSIS - IGG Negative (Negative); F. TULARENSIS - IGM Negative (Negative)
== END 2019-01-23 17:52 | disposition home or self-care (01) ==
LOC: D.ER 16:39
PROVIDERS: Family Medicine
DX: L03.113 Cellulitis of right upper limb (principal); S50.361A Insect bite (nonvenomous) of right elbow, initial encounter; W57.XXXA Bitten or stung by nonvenomous insect and other nonvenomous arthropods, initial encounter; Y93.89 Activity, other specified; Y92.89 Other specified places as the place of occurrence of the external cause

== ENCOUNTER → 2020-11-26 23:32 | Outpatient (CLI) | payer MEDICARE, MEDICAID ==
[2019-01-23 16:43] VITALS: BMI 32.0
[~2020-11-26 23:32] MED LIST changes: +PREDNISONE50 MG PO; +VIBRAMYCIN 100100 MG PO; +ZANAFLEX4 MG PO
== END | disposition home or self-care (01) ==
LOC: D.MAMMO 11-19 10:15
PROVIDERS: ATTEND Nurse Practitioner Family
DX: Z12.31 Encounter for screening mammogram for malignant neoplasm of breast (principal)

== ENCOUNTER 2020-11-29 12:13 | Emergency (ER) | payer MEDICARE, MEDICAID ==
[~2020-11-29] VITALS: Ht 165.1 cm; Wt 80.0 kg
[~2020-11-29 12:13] MED LIST changes: -PREDNISONE50 MG PO; -ZANAFLEX4 MG PO
[2020-11-29 12:15] VITALS: BP 138/90; Ht 165.1 cm; Wt 80.0 kg
[2020-11-29] MEDS ORDERED: ZANAFLEX4 MG PO (12:40)
[2020-11-29] MEDS ORDERED: PREDNISONE50 MG PO (12:40)
== END 2020-11-29 13:08 | disposition home or self-care (01) ==
LOC: D.ER 12:13
DX: M54.5 Low back pain (principal); M54.16 Radiculopathy, lumbar region; I10 Essential (primary) hypertension; Z95.5 Presence of coronary angioplasty implant and graft; I25.10 Atherosclerotic heart disease of native coronary artery without angina pectoris